=== PATIENT | male | born 1975 | race Caucasian/White ===

== ENCOUNTER 2017-10-15 14:35 | Emergency (ER) | payer SELFPAY ==
[2017-10-15 14:49] VITALS: BP 175/107
--- NOTE | 2017-10-15 14:57 | EDM.PDOC ---
ED HPI GENERAL MEDICAL PROBLEM - General Chief Complaint: Skin Complaint Stated Complaint: SKIN IRRITATION Time Seen by Provider: 10/15/17 14:48 Source of Information: Reports: Patient History Limitations: Reports: No Limitations - History of Present Illness INITIAL COMMENTS - FREE TEXT/NARRATIVE: Patient comes into the emergency department today for a new onset of a skin infection behind his right ear. Patient states that he had a staph infection approximately 4 years ago that resulted in IV antibiotics and surgical intervention. Patient noticed this red spot on the back of his neck/head and also a scab formation and became very worried and concerned and presented to the emergency room today for quick intervention and management. Patient denies any nausea, vomiting, fever, lightheadedness, dizziness, headache, chest, pain, or shortness of breath. He does not recall hitting or scratching the area open. Patient denies having any other health concerns currently. Onset: Sudden posterior right neck Pain Score (Numeric/FACES): 2 - Related Data Allergies Allergy/AdvReac Type Severity Reaction Status Date / Time No Known Allergies Allergy Verified 10/15/17 14:44 Home Meds: Home Meds Sulfamethoxazole/Trimethoprim [Bactrim 400-80 MG] 1 each PO BID #9 tablet [Rx] Past Medical History - Past Health History Medical/Surgical History: Denies Medical/Surgical History - Past Surgical History Musculoskeletal Surgical History: Reports: Other (See Below) Social & Family History - Tobacco Use Smoking Status *Q: Current Every Day Smoker Years of Tobacco use: 25 Packs/Tins Daily: 1 - Recreational Drug Use Recreational Drug Use: No ED ROS GENERAL - Review of Systems Review Of Systems: See Below Constitutional: Reports: No Symptoms HEENT: Reports: No Symptoms Respiratory: Reports: No Symptoms Cardiovascular: Reports: No Symptoms Endocrine: Reports: No Symptoms GI/Abdominal: Reports: No Symptoms : Reports: No Symptoms Musculoskeletal: Reports: No Symptoms Skin: Reports: Wound (back of right occipital infection ) Neurological: Reports: No Symptoms Psychiatric: Reports: No Symptoms Hematologic/Lymphatic: Reports: No Symptoms ED EXAM, SKIN/RASH Exam: See Below Exam Limited By: No Limitations General Appearance: Alert, WD/WN, No Apparent Distress Respiratory/Chest: No Respiratory Distress Cardiovascular: Normal Peripheral Pulses Back Exam: Normal Inspection, Full Range of Motion Extremities: Normal Inspection, Normal Range of Motion, Non-Tender Neurological: Alert, Oriented Psychiatric: Anxious Skin: Warm, Dry, Intact, Normal Color, No Rash Location, Skin: Head Characteristics: Other (crusted wound approx size of pea with red edges and warmth noted ) Course - Vital Signs Last Recorded V/S: Last Vital Signs Temp 35.8 C 10/15/17 14:44 Pulse 127 H 10/15/17 14:44 Resp 20 10/15/17 14:44 BP 175/107 H 10/15/17 14:44 Pulse Ox 96 10/15/17 14:44 Departure - Departure Time of Disposition: 15:00 Disposition: Home, Self-Care 01 Condition: Good Clinical Impression: Folliculitis - Discharge Information Instructions: Folliculitis Additional Instructions: 1. Keep area clean and dry 2. Can use topical antiseptic cream 3. Can use [id number] ibuprofen or Tylenol for pain discomfort or fever 4. Important to set up primary care provider to help follow chronic skin infections 5. Follow up with primary care provider if it worsens or does not get better after the course of the antibiotics. 6. Take entire course of antibiotics even if he feel better 7. Activity and diet are as tolerated no restrictions - Assessment/Plan Plan: 1. Wound assessment 2. Cleansed wound- no incision and drainage needed 3. Abx given in ER and script sent with pt 4. Education regarding proper wound care provided 5. Education also provided to set up PCP for regular follow up and further management and treatment if necessary
[2017-10-15] MEDS ORDERED: Take Home: Sulfamethoxazole/Trimethoprim 800-160 MG Tab, 2 Tab Pack PO ONE (15:00)
== END 2017-10-15 15:09 | disposition home or self-care (01) ==
LOC: VM.ED 14:35
DX: L73.9 Follicular disorder, unspecified (principal); F17.210 Nicotine dependence, cigarettes, uncomplicated
CPT/HCPCS: 99282; 99283; A9270